=== PATIENT | male | born 1995 | race Caucasian/White ===

== ENCOUNTER 2016-11-09 15:49 | Emergency (ER) | payer MEDICAID, OTHER ==
--- NOTE | 2016-11-09 16:12 | ED PDOC ---
Arrival/HPI - General Time Seen by Provider: 11/09/16 15:53 Historian: Patient - History of Present Illness Narrative History of Present Illness (Text): 11/09/16 16:08 A 21 year old male presents to the emergency department complaining of feeling depressed since earlier today. Patient recently lost his girlfriend this morning after a cardiac arrest. He reportedly texted someone that he wanted to kill himself. On evaluation, patient states he does not want to harm himself. He denies any physical complaints. Patient denies any fever, chills, nausea, vomiting, abdominal pain, chest pain, shortness of breath or any other complaints. Time/Duration: Other (earlier today) Symptom Course: Unchanged Quality: Other Context: Home Past Medical History - Provider Review Nursing Documentation Reviewed: Yes - Psychiatric Hx Substance Use: No - Anesthesia Hx Anesthesia: Yes Hx Anesthesia Reactions: No Hx Malignant Hyperthermia: No Family/Social History - Physician Review Nursing Documentation Reviewed: Yes Family/Social History: No Known Family HX Smoking Status: Former Smoker Hx Alcohol Use: Yes Hx Substance Use: No Allergies/Home Meds Allergies/Adverse Reactions: Allergies No Known Allergies Allergy (Verified 08/09/15 12:26) Home Medications: Home Meds Medication Instructions Recorded Confirmed No Known Home Med 11/09/16 11/09/16 Review of Systems - Physician Review All systems were reviewed & negative as marked: Yes - Review of Systems Constitutional: absent: Fevers, Night Sweats Respiratory: absent: SOB Cardiovascular: absent: Chest Pain Gastrointestinal: absent: Abdominal Pain, Nausea, Vomiting Psychiatric: Depression, Suicidal Ideation Physical Exam Vital Signs Temp Pulse Resp BP Pulse Ox 11/09/16 18:12 98.0 F 70 18 133/59 L 100 11/09/16 16:00 97.8 F 88 18 132/73 98 - Systems Exam Head: Present: Atraumatic, Normocephalic Pupils: Present: PERRL Extroacular Muscles: Present: EOMI Conjunctiva: Present: Normal Mouth: Present: Moist Mucous Membranes Neck: Present: Normal Range of Motion Respiratory/Chest: Present: Clear to Auscultation, Good Air Exchange. No: Respiratory Distress, Accessory Muscle Use Cardiovascular: Present: Regular Rate and Rhythm, Normal S1, S2. No: Murmurs Abdomen: Present: Normal Bowel Sounds. No: Tenderness, Distention, Peritoneal Signs Back: Present: Normal Inspection Upper Extremity: Present: Normal Inspection. No: Cyanosis, Edema Lower Extremity: Present: Normal Inspection. No: Edema Neurological: Present: GCS=15, CN II-XII Intact, Speech Normal Skin: Present: Warm, Dry, Normal Color. No: Rashes Psychiatric: Present: Alert, Oriented x 3, Normal Insight, Normal Concentration Medical Decision Making ED Course and Treatment: 11/09/16 16:08 Impression: A 21 year old male with depression. Patient reportedly texted someone he wanted to kill himself. Patient currently denies suicidal ideation or any other complaints. Plan: -- Labs -- Urinalysis -- Reassess and disposition Progress Notes: Patient evaluated by PES worker and is medically cleared. - Lab Interpretations Lab Results: 11/09/16 16:30 11/09/16 16:30 Lab Results 11/09/16 16:30: Alcohol, Quantitative < 10 11/09/16 16:30: Salicylates < 1 L, Acetaminophen < 10.0 L 11/09/16 16:30: Sodium 143, Potassium 4.0, Chloride 103, Carbon Dioxide 26, Anion Gap 18, BUN 14, Creatinine 0.6, Est GFR ( Amer) > 60, Est GFR (Non- Af Amer) > 60, Random Glucose 104, Calcium 9.4, Total Bilirubin 1.7 H, AST 22, ALT 35, Alkaline Phosphatase 70, Total Protein 7.9, Albumin 4.8, Globulin 3.2, Albumin/Globulin Ratio 1.5 11/09/16 16:30: WBC 7.6, RBC 4.70, Hgb 14.9, Hct 42.8, MCV 91.1, MCH 31.7, MCHC 34.8, RDW 12.8, Plt Count 239, MPV 10.6, Gran % 78.5 H, Lymph % (Auto) 16.8 L, [place] % (Auto) 4.5, Eos % (Auto) 0.1 L, Baso % (Auto) 0.1, Gran # 6.00, Lymph # 1.3, [place] # 0.3, Eos # 0.0, Baso # 0.01, Corrected WBC (Man) Cancelled, Neutrophils % (Manual) Cancelled, Band Neutrophils % Cancelled, Lymphocytes % ( Manual) Cancelled, Atypical Lymphs % Cancelled, Monocytes % (Manual) Cancelled, Eosinophils % (Manual) Cancelled, Basophils % (Manual) Cancelled, Metamyelocytes % Cancelled, Myelocytes % Cancelled, Promyelocytes % Cancelled, Nucleated RBC % Cancelled, Hypersegmented Polys Cancelled, Immature Lymphocytes Cancelled, Blast Cells Cancelled, Smudge Cells Cancelled, Toxic Granulation Cancelled, Dohle Bodies Cancelled, Jorge Rods Cancelled, Platelet Evaluation Cancelled, Plt Clumps, EDTA Cancelled, Large Platelets Cancelled, Giant Platelets Cancelled, Polychromasia Cancelled, Hypochromasia Cancelled, Hyperchromasia Cancelled, Poikilocytosis (manual Cancelled, Basophilic Stippling Cancelled, Anisocytosis (manual) Cancelled, Microcytosis (manual) Cancelled, Macrocytosis (manual) Cancelled, Spherocytes Cancelled, Sickle Cells Cancelled, Target Cells Cancelled, Tear Drop Cells Cancelled, Ovalocytes Cancelled, Stomatocytes Cancelled, Helmet Cells Cancelled, [place] Rings Cancelled , [place] Cells Cancelled, Acanthocytes (Spur) Cancelled, Rouleaux Cancelled, Schistocytes Cancelled 11/09/16 16:12: Urine Opiates Screen Negative, Urine Methadone Screen Negative, Ur Barbiturates Screen Negative, Ur Phencyclidine Scrn Negative, Ur Amphetamines Screen Negative, U Benzodiazepines Scrn Negative, U Oth Cocaine Metabols Negative, U Cannabinoids Screen Negative 11/09/16 16:12: Urine Color Light yellow, Urine Appearance Clear, Urine pH 6.5, Ur Specific [place] 1.025, Urine Protein Trace H, Urine Glucose (UA) Negative, Urine Ketones Negative, Urine Blood Negative, Urine Nitrate Negative, Urine Bilirubin Negative, Urine Urobilinogen 0.2, Ur Leukocyte Esterase Negative, Urine RBC 0 - 2, Urine WBC 0 - 2, Ur Epithelial Cells 0 - 2, Urine Bacteria Large I have reviewed the lab results: Yes - Medication Orders Current Medication Orders: Discontinued Medications Acetaminophen (Tylenol 325mg Tab) 650 mg PO STAT STA Stop: 11/09/16 17:01 Last Admin: 11/09/16 17:38 Dose: 650 mg - Scribe Statement The provider has reviewed the documentation as recorded by the Neo Greenwood Provider Scribe Attestation: All medical record entries made by the Neo were at my direction and personally dictated by me. I have reviewed the chart and agree that the record accurately reflects my personal performance of the history, physical exam, medical decision making, and the department course for this patient. I have also personally directed, reviewed, and agree with the discharge instructions and disposition. Disposition/Present on Arrival - Present on Arrival Any Indicators Present on Arrival: No History of DVT/PE: No History of Uncontrolled Diabetes: No Urinary Catheter: No History Surgical Site Infection Following: None - Disposition Have Diagnosis and Disposition been Completed?: Yes Diagnosis: Depression Disposition: HOME/ ROUTINE Disposition Time: 07:00 Condition: STABLE Discharge Instructions (ExitCare): Depression (ED), Suicide Prevention for Adults (DC) Additional Instructions: please follow up as instructed by pes worker. return to er with worsening symptoms or concerns. Referrals: [facility] [Outside] - Follow up with primary [facility] [Outside] - Follow up with primary [facility] [Outside] - Follow up with primary PCP,NO [Primary Care Provider] - Follow up with primary Forms: [employer] (E[place]ian)
[2016-11-09 16:22] VITALS: RESP 18
[2016-11-09 16:42] LABS: BASO # 0.01 K/mm3 (0.0-2.0); BASO % 0.1 % (0.0-3.0); EOS % 0.1 % (1.5-5.0); GRAN % 78.5 % (50.0-68.0); HEMATOCRIT 42.8 % (42.0-52.0); LYMPH # 1.3 (1.2-3.4); LYMPH % 16.8 % (22.0-35.0); MEAN CELL VOLUME 91.1 fl (80.0-105.0); MEAN CORPUSCULAR HEMOGLOBIN 31.7 pg (25.0-35.0); MEAN CORPUSCULAR HGB CONC 34.8 g/dl (31.0-37.0); MEAN PLATELET VOLUME 10.6 fl (7.0-11.0); MONO # 0.3 (0.1-0.6); MONO % 4.5 % (1.0-6.0); RED CELL DISTRIBUTION WIDTH 12.8 % (11.5-14.5); WHITE BLOOD COUNT 7.6 10^3/ul (4.5-11.0)
[2016-11-09 17:04] LABS: ALB/GLOB RATIO 1.5 (1.1-1.8); ALKALINE PHOSPHATASE 70 U/L (38-133); ALT/SGPT 35 U/L (7-56); AST/SGOT 22 U/L (15-59); BILIRUBIN,TOTAL 1.7 mg/dL (0.2-1.3); BLOOD UREA NITROGEN 14 mg/dL (7-21); CALCIUM 9.4 mg/dL (8.4-10.5); CARBON DIOXIDE 26 mmol/L (21-33); CHLORIDE 103 mmol/L (95-110); GFR AFRICAN-AMERICAN > 60; GLUCOSE,RANDOM 104 mg/dL (70-110); SODIUM 143 mmol/L (132-148); TOTAL PROTEIN 7.9 g/dL (5.8-8.3)
[2016-11-09 17:19] LABS: PH,URINE 6.5 (4.7-8.0); URINE BILIRUBIN NEGATIVE (NEGATIVE); URINE BLOOD NEGATIVE (NEGATIVE); URINE GLUCOSE (UA) NEGATIVE (NEGATIVE); URINE KETONE NEGATIVE (NEGATIVE); URINE LEUKOCYTE ESTERASE NEGATIVE Leu/uL (NEGATIVE); URINE PROTEIN TRACE mg/dL (<30 mg/dL); URINE UROBILINOGEN 0.2 E.U./dL (<1 E.U./dL)
[2016-11-09 17:25] LABS: URINE APPEARANCE CLEAR (CLEAR); URINE COLOR LIGHT YELLOW (YELLOW)
[2016-11-09 17:48] LABS: URINE BACTERIA LARGE (NEG); URINE EPITHELIAL CELLS 0 - 2 /hpf (0-5); URINE RBC 0 - 2 /hpf (0-2); URINE WBC 0 - 2 /hpf (0-6)
[2016-11-09 18:13] VITALS: BP 133/59; PULSE 70; TEMP 98; O2SAT 100
== END 2016-11-09 18:29 | disposition home or self-care (01) ==
LOC: ED 15:49
DX: F32.9 Major depressive disorder, single episode, unspecified (principal)

== ENCOUNTER 2017-10-09 17:22 | Emergency (ER) | payer SELFPAY ==
--- NOTE | 2017-10-09 17:32 | ED PDOC ---
Arrival/HPI - General Chief Complaint: Finger,Hand,&Wrist Time Seen by Provider: 10/09/17 17:31 Historian: Patient - History of Present Illness Narrative History of Present Illness (Text): 10/09/17 17:30 A 22 year old male, with no significant past medical history, presents to the emergency department complaining of numbness left hand 4th and 5th digits for 3 days. Patient reports 3 days ago having awoken with symptoms, and also notes slight numbness to left forearm as well. Patient denies any trauma, or any other complaints at this time. 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 No PMD Time/Duration: < week (3 days) Symptom Onset: Gradual Symptom Course: Unchanged Past Medical History - Provider Review Nursing Documentation Reviewed: Yes - Infectious Disease Hx of Infectious Diseases: None - Cardiac Hx Cardiac Disorders: No - Pulmonary Hx Tuberculosis: No - Neurological HX Cerebrovascular Accident: No Hx Seizures: No - Hematological/Oncological Hx Cancer: No - Genitourinary/Gynecological Hx Sexually Transmitted Diseases: No - Psychiatric Hx Psychophysiologic Disorder: No Hx Substance Use: No - Anesthesia Hx Anesthesia: Yes Hx Anesthesia Reactions: No Hx Malignant Hyperthermia: No Family/Social History - Physician Review Nursing Documentation Reviewed: Yes Family/Social History: No Known Family HX Smoking Status: Current Some Days Smoker Hx Alcohol Use: Yes Frequency of alcohol use: Socially Hx Substance Use: No Allergies/Home Meds Allergies/Adverse Reactions: Allergies No Known Allergies Allergy (Verified 10/09/17 17:24) Home Medications: Home Meds Medication Instructions Recorded Confirmed No Known Home Med 11/09/16 10/09/17 Review of Systems - Physician Review All systems were reviewed & negative as marked: Yes - Review of Systems Constitutional: absent: Other (no trauma) Neurological: Other (numbness to left 4th and 5th digit, and slight up left forearm.) Physical Exam - Physical Exam Narrative Physical Exam (Text): Gen: VS reviewed, alert, well developed, well nourished, nontoxic, mild distress ENT: normal pharynx Eye: EOMI, PERRL Neck: no JVD, supple, no adenopathy CV: regular rate, regular rhythm, no rubs, no murmur, no gallops, S1, S2, pulses , equal and strong Pulm: no distress, clear to auscultation, no wheeze, no rhonchi, breath sounds equal, no rales Abd: soft, nontender, no guarding, no rebound, no rigidity, normal bowel sounds Ext: no edema Skin: good color, no rash, no cyanosis Psych: responds appropriately to questions, normal affect Neuro: oriented x 3, CN2-12 intact grossly, motor intact, sensation intact, left forearm medial aspect and left hand 4th and 5th digit diminished sensation Vital Signs Reviewed: Yes Vital Signs Temp Pulse Resp BP Pulse Ox 10/09/17 18:13 100 10/09/17 18:11 98.0 F 71 17 134/80 100 10/09/17 17:24 98.1 F 73 16 139/77 99 Temperature: Afebrile Blood Pressure: Normal Pulse: Regular Respiratory Rate: Normal Appearance: Positive for: Well-Appearing, Non-Toxic, Comfortable Pain Distress: None Mental Status: Positive for: Alert and Oriented X 3 Medical Decision Making ED Course and Treatment: 10/09/17 17:35 Impression: 22 year old male with numbness to left hand 4th and 5th digits, and up left forearm. Plan: -- Reassess and disposition Progress Notes: 10/09/17 17:[address] Clifton, neurologist, who disagrees with symptoms being a central neurosystem cause. Recommends having patient have outpatient follow-up for nerve reduction studies. 10/09/17 19:52 patient was seen for focal left ulnar sensation disturbance. no motor deficits, no systemic complaints of clinical findings. presentation not consistent with cva and most consistent with peripheral neuropathy. patient discharged in stable condition to follow up with neurology. - Scribe Statement The provider has reviewed the documentation as recorded by the Neo Campos Provider Scribe Attestation: All medical record entries made by the Neo were at my direction and personally dictated by me. I have reviewed the chart and agree that the record accurately reflects my personal performance of the history, physical exam, medical decision making, and the department course for this patient. I have also personally directed, reviewed, and agree with the discharge instructions and disposition. Disposition/Present on Arrival - Present on Arrival Any Indicators Present on Arrival: No History of DVT/PE: No History of Uncontrolled Diabetes: No Urinary Catheter: No History of Decub. Ulcer: No History Surgical Site Infection Following: None - Disposition Have Diagnosis and Disposition been Completed?: Yes Diagnosis: Peripheral neuropathy, Ulnar nerve neuropathy Disposition: HOME/ ROUTINE Disposition Time: 19:53 Condition: STABLE Discharge Instructions (ExitCare): Peripheral Neuropathy Print Language: TAMAZIGHT Additional Instructions: You must follow up with a neurologist. You will need to get a test called a nerve conduction study. Return for any new or worsening symptoms especially weakness, worsening or progressive numbness. NOHEMY RAIN, thank you for letting us take care of you today. Your provider was Dr. Leif Callaway and you were treated for peripheral nerve neuropathy. The emergency medical care you received today was directed at your acute symptoms. If you were prescribed any medication, please fill it and take as directed. It may take several days for your symptoms to resolve. Return to the Emergency Department if your symptoms worsen, do not improve, or if you have any other problems. Please contact your doctor or call one of the physicians/clinics you have been referred to that are listed on the Patient Visit Information form that is included in your discharge packet. Bring any paperwork you were given at discharge with you along with any medications you are taking to your follow up visit. Our treatment cannot replace ongoing medical care by a primary care provider outside of the emergency department. Thank you for allowing the [email or web address] team to be part of your care today. If you had an X-Ray or CT scan: A Radiologist will review the ED reading if any change in treatment is needed we will contact you. If you had a blood, urine, or wound culture: It will take several days for the results, if any change in treatment is needed we will contact you. If you had an STI test: It will take 48 hours for the results. Please call after 1 week if you have not heard back. Referrals: [facility] [Outside] - Follow up with primary Marty Ennis MD [Staff Provider] - Follow up with primary Forms: [employer] ([place]alan)
[2017-10-09 18:13] VITALS: BP 134/80; PULSE 71; RESP 17; TEMP 98; O2SAT 100
== END 2017-10-09 18:13 | disposition home or self-care (01) ==
LOC: ED 17:22
DX: G62.9 Polyneuropathy, unspecified (principal); G56.22 Lesion of ulnar nerve, left upper limb